=== PATIENT | female | born 1985 | race Caucasian/White ===

== ENCOUNTER 2020-07-28 23:38 | Emergency (ER) | payer BC ==
[2020-07-29] MEDS ORDERED: Ketorolac Tromethamine 30 MG/ML VIAL ONE (00:40)
== END 2020-07-29 01:01 | disposition home or self-care (01) ==
LOC: ERS 23:38
DX: S80.02XA Contusion of left knee, initial encounter (principal); S90.01XA Contusion of right ankle, initial encounter; W22.8XXA Striking against or struck by other objects, initial encounter; K21.9 Gastro-esophageal reflux disease without esophagitis; I10 Essential (primary) hypertension
CPT/HCPCS: 72170; 96374; G0390; J1885

== ENCOUNTER 2024-10-28 11:00 | Outpatient (CLI) | payer BC ==
[2024-10-28 13:59] LABS: #Basophils 0.03 10x3/uL (0.0-0.2); #Eosinophils 0.24 10x3/uL (0.0-0.7); #Monocytes 0.26 10x3/uL (0.11-0.59); #Neutrophils 1.73 10x3/uL (1.40-6.50); %Basophils 0.8 % (0.0-1.0); %Eosinophils 6.1 % (0.0-10.0); %Lymphocytes 42.5 % (21.0-51.0); %Monocytes 6.6 % (0.0-10.0); %Neutrophils 44.0 % (42.0-75.0); Hematocrit 43.4 % (36.0-47.0); Hemoglobin 14.9 g/dL (12.0-16.0); Mean Corpuscular Hemoglobin 28.6 pg (27.0-31.0); Mean Corpuscular Volume 83.3 fL (78.0-98.0); Platelet Count 204 10x3/uL (130-400); Red Blood Cell (RBC) Count 5.21 mill/uL (4.20-5.40); White Blood Cell (WBC) Count 3.93 10x3/uL (4.8-10.8)
[2024-10-28 14:21] LABS: BHCG - Serum Negative (NEGATIVE); Pregs Control Background? CLEAR/WHITE (CLR/WHITE); Pregs Control Bar Appear? YES (CONTROL BAR)
[2024-10-28 14:27] LABS: ALT (SGPT) 50 U/L (Less than 34); AST (SGOT) 40 U/L (11-34); Albumin 4.6 g/dL (3.1-4.5); Alkaline Phosphatase 56 U/L (40-110); Anion Gap 15 mmol/L (10-20); BUN (Urea Nitrogen) 20 mg/dL (7.0-18.7); Bilirubin, Total 0.7 mg/dL (0.3-1.2); Calc. Creatinine Clearance 0 mL/min (70-130); Calcium 9.5 mg/dL (7.8-10.44); Carbon Dioxide 27 mmol/L (22-29); Chloride 100 mmol/L (98-107); Globulin 3.4 g/dL (2.4-3.5); Glucose 98 mg/dL (70-105); Potassium 3.7 mmol/L (3.5-5.1); Sodium 138 mmol/L (136-145)
== END 2024-10-28 11:01 | disposition home or self-care (01) ==
LOC: LABBT 11:00
PROVIDERS: ATTEND Surgery
DX: Z01.818 Encounter for other preprocedural examination (principal); E66.01 Morbid (severe) obesity due to excess calories
CPT/HCPCS: 80053; 83036; 84703; 85025

== ENCOUNTER 2024-10-28 13:00 | Inpatient (IN) | payer BC ==
[2024-10-28 11:45] VITALS: BMI 44.4
[2024-11-02] MEDS ORDERED: Ketorolac Tromethamine 30 MG (1 mL) VIAL ONE (06:15)
[2024-11-02] MEDS ORDERED: Acetaminophen 500 MG TAB ONE (06:16)
[2024-11-02] MEDS ORDERED: Heparin 5,000 UNITS/ML VIAL ONE (06:16)
[2024-11-02] MEDS ORDERED: CEFAZOLIN 2 GM VIAL ONE (06:16)
[2024-11-02] MEDS ORDERED: Bupivacaine 0.25% HCL 30 ML VIAL ONE (06:41)
[2024-11-02] MEDS ORDERED: fentaNYL PF 100 MCG/2 ML SYRINGE ONE ×2 (07:01→09:20)
[2024-11-02] MEDS ORDERED: PROPOFOL 20 ML ONE (07:01)
[2024-11-02] MEDS ORDERED: Lidocaine 1% PF 5 ML VIAL ONE (07:02)
[2024-11-02] MEDS ORDERED: Rocuronium Bromide 10 MG/ML (10ML VIAL) ONE (07:02)
[2024-11-02] MEDS ORDERED: SUGAMMADEX SODIUM 200 MG/2 ML VIAL ONE ×2 (08:14→08:32)
[2024-11-02] MEDS ORDERED: Ondansetron PF 4 MG/2 ML Vial ONE (08:15)
[2024-11-02] MEDS ORDERED: Glucagon 1 MG/ML KIT IM PRN (09:02)
[2024-11-02] MEDS ORDERED: hydrALAZINE 20 MG/ML VIAL SLOW IVP PRN (09:02)
[2024-11-02] MEDS ORDERED: Dextrose 50% Abboject 50 ML SYRINGE SLOW IVP PRN (09:02)
[2024-11-02] MEDS ORDERED: diphenhydrAMINE 50 MG/ML VIAL IVP PRN (09:02)
[2024-11-02] MEDS: oxyCODONE 5 MG TAB PO PRN (11:49)
[2024-11-02] MEDS: D5 1/2 NS w/20 mEq KCL 1,000 ML IV SCH (11:50)
[2024-11-02] MEDS: Pantoprazole 40 MG VIAL IVP SCH (11:51)
[2024-11-02] MEDS: Ondansetron PF 4 MG/2 ML Vial IVP PRN (15:13)
[2024-11-02] MEDS: Sertraline 100 MG TAB PO SCH (20:31)
[2024-11-02] MEDS: Metoprolol Succinate XL 100 MG ER.TAB PO SCH (20:31)
[2024-11-03 05:13] LABS: #Basophils Less than 0.03 10x3/uL (0.0-0.2); #Eosinophils Less than 0.03 10x3/uL (0.0-0.7); #Monocytes 0.54 10x3/uL (0.11-0.59); #Neutrophils 4.76 10x3/uL (1.40-6.50); %Basophils 0.1 % (0.0-1.0); %Eosinophils 0.1 % (0.0-10.0); %Lymphocytes 24.8 % (21.0-51.0); %Monocytes 7.6 % (0.0-10.0); %Neutrophils 67.1 % (42.0-75.0); Hematocrit 38.3 % (36.0-47.0); Hemoglobin 13.3 g/dL (12.0-16.0); Mean Corpuscular Hemoglobin 28.5 pg (27.0-31.0); Mean Corpuscular Volume 82.2 fL (78.0-98.0); Platelet Count 182 10x3/uL (130-400); Red Blood Cell (RBC) Count 4.66 mill/uL (4.20-5.40); White Blood Cell (WBC) Count 7.10 10x3/uL (4.8-10.8)
[2024-11-03 05:21] LABS: Anion Gap 13 mmol/L (10-20); BUN (Urea Nitrogen) 7 mg/dL (7.0-18.7); Calc. Creatinine Clearance 175 mL/min (70-130); Calcium 8.8 mg/dL (7.8-10.44); Carbon Dioxide 25 mmol/L (22-29); Chloride 103 mmol/L (98-107); Glucose 137 mg/dL (70-105); Potassium 3.2 mmol/L (3.5-5.1); Sodium 138 mmol/L (136-145)
[2024-11-03] MEDS: Enoxaparin 40 MG (0.4 mL) SYRINGE SC SCH (05:55)
[2024-11-03] MEDS: Losartan 25 MG TAB PO SCH (08:49)
[2024-11-03 09:19] VITALS: BP 134/81; TEMP 98.3
[2024-11-04] MEDS ORDERED: Enoxaparin 40 MG (0.4 mL) SYRINGE SC SCH (09:00)
== END 2024-11-03 11:41 | disposition home or self-care (01) | DRG 621 ==
LOC: SURG A 11-02 06:04 → SURG B 11-02 10:39
PROVIDERS: ADMIT Surgery; ATTEND Surgery
PROC: 0DB64Z3 Excision of Stomach, Percutaneous Endoscopic Approach, Vertical (ICD-10-PCS; principal; 2024-11-02)
PROC: 8E0W4CZ Robotic Assisted Procedure of Trunk Region, Percutaneous Endoscopic Approach (ICD-10-PCS; 2024-11-02)
DX: E66.01 Morbid (severe) obesity due to excess calories (principal); Z68.41 Body mass index [BMI] 40.0-44.9, adult; I10 Essential (primary) hypertension; Z79.899 Other long term (current) drug therapy; Z91.048 Other nonmedicinal substance allergy status; Z90.49 Acquired absence of other specified parts of digestive tract; K21.9 Gastro-esophageal reflux disease without esophagitis; F41.9 Anxiety disorder, unspecified; Z83.3 Family history of diabetes mellitus
CPT/HCPCS: 36415; 80048; 85025; 88307; J0169; J0665; J1100; J1644; J1650; J1885; J2405; J2470; J2550; J2704; J3480; S2900